=== PATIENT | male | born 1970 | race African-American/Black ===

== ENCOUNTER 2024-02-13 11:09 | Emergency (ER) | payer SELFPAY ==
[~2024-02-13] VITALS: Ht 180.3 cm; Wt 93.4 kg
[2024-02-13] MEDS ORDERED: MORPHINE SULFATE 4 MG/1 ML DISP.SYRIN ONE (11:50)
[2024-02-13] MEDS ORDERED: ONDANSETRON 4 MG/2 ML VIAL ONE (11:50)
[2024-02-13 11:56] LABS: *BILIRUBIN,URIN NEGATIVE (NEGATIVE); *BLOOD, URINE NEGATIVE (NEGATIVE); *CLARITY,URINE CLEAR (CLEAR); *COLOR,URINE YELLOW (YELLOW); *KETONES,URINE NEGATIVE (NEGATIVE); *PROTEIN,URINE NEGATIVE (NEGATIVE); *UROBILINOGEN,URINE 0.2 E.U./dl (NORMAL); LEUKOCYTE ESTERASE ,URINE NEGATIVE (NEGATIVE); NITRITE, URINE NEGATIVE (NEGATIVE); PH,URINE 8.5 (5.0-8.0); UGLUCOSE NEGATIVE (NEGATIVE)
[2024-02-13] MEDS: ONDANSETRON 4 MG/2 ML VIAL IV ONE (11:59)
[2024-02-13] MEDS: IV NORMAL SALINE 1000 ML BAG IV ONE (12:00)
[2024-02-13] MEDS: MORPHINE SULFATE 4 MG/1 ML DISP.SYRIN IV ONE (12:01)
[2024-02-13 12:02] LABS: BASOPHILS # (AUTO) 0.1 K/UL (0.0-0.2); BASOPHILS % (AUTO) 1.1 % (0.0-2.0); DIFFERENTIAL COMMENT 0; HEMOGLOBIN 12.8 g/dL (12.5-16.3); LYMPHOCYTES # (AUTO) 1.2 K/uL (0.8-4.8); MEAN CORPUSCULAR HEMOGLOBIN 27.4 uug (23.8-33.4); MEAN CORPUSCULAR HGB CONC 34 g/dL (32.5-36.3); MEAN CORPUSCULAR VOLUME 81.1 fL (73.0-96.2); MONOCYTES # (AUTO) 0.3 K/uL (0.1-1.30); MONOCYTES % (AUTO) 5.2 % (0.0-11.0); NEUTROPHILS # (AUTO) 3.8 K/uL (1.8-8.9); NEUTROPHILS % (AUTO) 70.7 % (38.5-71.5); PLATELET COUNT (AUTO) 251 K/uL (152-348); RED BLOOD CELL COUNT(AUTO) 4.68 MIL/uL (4.06-5.63); RED CELL DISTRIBUTION WIDTH 16.7 % (12.1-16.2); WHITE BLOOD COUNT (AUTO) 5.4 K/uL (3.6-10.2)
[2024-02-13 12:11] LABS: CREATININE 1.2 mg/dL (0.6-1.3); POTASSIUM 3.5 mmol/L (3.5-5.1)
[2024-02-13 12:17] LABS: ALBUMIN 4.1 g/dL (3.4-5.0); BILIRUBIN,DIRECT 0.1 mg/dL (0.0-0.2); BILIRUBIN,TOTAL 0.9 mg/dL (0.2-1.0); TOTAL PROTEIN, SERUM 7.9 g/dL (6.4-8.2)
[2024-02-13 12:21] LABS: LACTIC ACID 2.8 mmol/L (0.4-2.0)
[2024-02-13] MEDS ORDERED: SWABABLE VALVE TRANSFER SET EA MC ONE (12:34)
[2024-02-13] MEDS ORDERED: IOHEXOL 300MG/ML 100 ML INFUS..BTL ONE (12:34)
[2024-02-13] MEDS ORDERED: IV NORMAL SALINE 250 ML IV ONE (12:34)
[2024-02-13] MEDS ORDERED: DICY20TA11 PO (15:38)
[2024-02-13 16:55] VITALS: BP 130/88; TEMP 97.8; O2SAT 100
== END 2024-02-13 16:55 | disposition home or self-care (01) ==
LOC: ER 11:09
DX: R10.32 Left lower quadrant pain (principal)
CPT/HCPCS: 99285; 74177; 96374; 96361; 96375; 80076; 80048; 81003; 83690; 85025; 87040 ×2; 36415; 83605 ×2; J2405; Q9967; J2270; J7040; A4606; A4663